=== PATIENT | male | born 1985 ===

== ENCOUNTER 2019-02-26 17:12 | Emergency (ER) | payer SELFPAY ==
[2019-02-26] MEDS ORDERED: NS 0.9% 1000 ML** 1,000 ML IV ONE (17:40)
[2019-02-26 18:00] LABS: ABS Eosinophils 0.1 10^3/ul (0-0.6); ABS Lymphocytes 2.4 10^3/ul (1.0-4.8); ABS Monocytes 0.8 10^3/ul (0-0.8); ABS Neutrophils 6.9 10^3/ul (1.5-7.7); Eosinophil % 1.1 %; Hematocrit 42 % (42-52); Hemoglobin 14.4 g/dL (14.0-18.0); Lymphocyte % 23.3 %; Mean Corpuscular HGB Conc 34 g/dL (31-36); Mean Corpuscular Hemoglobin 30 pg (27-31); Mean Corpuscular Volume 87 fL (80-94); Mean Platelet Volume 8.5 fL (7.4-10.4); Platelet Count 246 10^3/uL (150-450); Red Blood Count 4.81 10^6 /uL (4.18-5.48); Red Cell Distribution Width 14 % (10-15); White Blood Count 10.2 10^3/uL (3.5-10.8)
[2019-02-26] MEDS ORDERED: Ondansetron INJ* 2 MG/ML VIAL IV ONE (18:00)
[2019-02-26] MEDS ORDERED: Pantoprazole IV* 40 MG IV ONE (18:00)
--- NOTE | 2019-02-26 18:03 | ED ---
GI/ HPI - HPI Summary HPI Summary: 33 year old male presents with diffuse abdominal pain today. He admits to nausea vomiting. Denies any diarrhea. Last bowel movement was today. No fevers. He states he's been having tremors. He denies any cough. He admits to headache. No chest pressure or shortness or breath. No urinary symptoms. No one else around him is sick. He's never had this before. No previous abdominal surgeries. Has no medical conditions. denies any other symptoms. has not tried anything for his symptoms. - History of Current Complaint Chief Complaint: EDAbdPain Time Seen by Provider: 02/26/19 17:34 Stated Complaint: ABD PAIN PER PT Pain Intensity: 9 - Allergy/Home Medications Allergies/Adverse Reactions: Allergies Allergy/AdvReac Type Severity Reaction Status Date / Time No Known Allergies Allergy Verified 02/26/19 17:20 PMH/Surg Hx/FS Hx/Imm Hx Endocrine/Hematology History: Denies: Hx Anticoagulant Therapy Respiratory History: Denies: Hx Asthma Infectious Disease History: No Infectious Disease History: Denies: Traveled Outside the [place] in Last 30 Days - Family History Known Family History: Positive: Non-Contributory - Social History Alcohol Use: None Substance Use Type: Reports: None Smoking Status (MU): Never Smoked Tobacco Review of Systems Negative: Fever Negative: Chest Pain Negative: Shortness Of Breath Positive: Abdominal Pain, Vomiting, Nausea. Negative: Diarrhea All Other Systems Reviewed And Are Negative: Yes Physical Exam Triage Information Reviewed: Yes Vital Signs On Initial Exam: Initial Vitals Temp Pulse Resp BP Pulse Ox 98.8 F 71 16 141/90 97 02/26/19 17:13 02/26/19 17:13 02/26/19 17:13 02/26/19 17:13 02/26/19 17:13 Vital Signs Reviewed: Yes Appearance: Positive: Well-Appearing Skin: Positive: Warm, Dry Head/Face: Positive: Normal Head/Face Inspection Eyes: Positive: Normal, EOMI, KEENAN, Conjunctiva Clear ENT: Positive: Pharynx normal Respiratory/Lung Sounds: Positive: Clear to Auscultation, Breath Sounds Present Cardiovascular: Positive: Normal, RRR Abdomen Description: Positive: Soft, Other: - diffuse abd pain Bowel Sounds: Positive: Present Musculoskeletal: Positive: Normal Neurological: Positive: Normal Psychiatric: Positive: Normal Procedures - Sedation Patient Received Moderate/Deep Sedation with Procedure: No Diagnostics - Vital Signs Vital Signs Temp Pulse Resp BP Pulse Ox 02/26/19 17:13 98.8 F 71 16 141/90 97 - Laboratory Lab Results: Lab Results 02/26/19 Range/Units 17:53 WBC 10.2 (3.5-10.8) 10^3/uL RBC 4.81 (4.18-5.48) 10^6 /uL Hgb 14.4 (14.0-18.0) g/dL Hct 42 (42-52) % MCV 87 (80-94) fL MCH 30 (27-31) pg MCHC 34 (31-36) g/dL RDW 14 (10-15) % Plt Count 246 (150-450) 10^3/uL MPV 8.5 (7.4-10.4) fL Neut % (Auto) 67.8 % Lymph % (Auto) 23.3 % Turner % (Auto) 7.4 % Eos % (Auto) 1.1 % Baso % (Auto) 0.4 % Absolute Neuts (auto) 6.9 (1.5-7.7) 10^3/ul Absolute Lymphs (auto) 2.4 (1.0-4.8) 10^3/ul Absolute Monos (auto) 0.8 (0-0.8) 10^3/ul Absolute Eos (auto) 0.1 (0-0.6) 10^3/ul Absolute Basos (auto) 0.0 (0-0.2) 10^3/ul Absolute Nucleated RBC 0.0 10^3/ul Nucleated RBC % 0.0 Result Diagrams: 02/26/19 17:53 02/26/19 17:53 Lab Statement: Any lab studies that have been ordered have been reviewed, and results considered in the medical decision making process. Re-Evaluation - Re-Evaluation First Eval Re-Evaluation Time: 18:50 Change: Improved Comment: feeling better, still diffuse abd pain thats improved. requesting maalox Second Eval Re-Evaluation Time: 19:50 Change: Improved Comment: feeling better after GI cocktail GIGU Course/Dx - Course Course Of Treatment: 33 year old male presents with diffuse abdominal pain today. He admits to nausea vomiting. Denies any diarrhea. Last bowel movement was today. No fevers. He states he's been having tremors. He denies any cough. He admits to headache. No chest pressure or shortness. No urinary symptoms. No one else around him is sick. He's never had this before. No previous abdominal surgeries. Has medical conditions. On exam has mild diffuse abdominal tenderness. wbc normal. CRP is elevated. Gave fluids protonix and Zofran and feeling better. Requesting GI cocktail which gave. - Diagnoses Differential Diagnoses - Male: Gastritis, Gastroenteritis (Bacterial), Gastroenteritis (Viral) Provider Diagnoses: Abdominal pain, Nausea Discharge ED - Sign-Out/Discharge Documenting (check all that apply): Patient Departure - Discharge Plan Condition: Good Disposition: HOME Prescriptions: Ondansetron ODT TAB* [Zofran 4 MG Odt TAB*] 4 mg PO Q6H PRN #12 tab.odt PRN Reason: Nausea Patient Education Materials: Abdominal Pain (ED) Print Language: MICRONESIAN Referrals: [facility] [Outside] Additional Instructions: Can take Zofran every 6 hours as needed for nausea Drink small amounts of fluid as tolerated When able to eat follow BRAT diet: Bananas, rice, applesauce, toast Take ibuprofen or Tylenol for pain as needed every 6 hours Follow up with [facility] within 5 days Return to ED if develop any new or worsening symptoms - Billing Disposition and Condition Condition: GOOD Disposition: Home - Attestation Statements Provider Attestation: I was available for consultation for this patient. I did not evaluate the patient or participate in any medical decision making or disposition decisions unless I am specifically named in the chart as having consulted on the patient. If I have consulted on the patient, please see my own ED note on the patient encounter. Ting Chew MD
[2019-02-26 18:17] LABS: Albumin 4.2 g/dL (3.2-5.2); Albumin/Globulin Ratio 1.1 (1-3); BUN/Creatinine Ratio 16.7 (8-20); C Reactive Protein 8.16 mg/L (<8.01); Calcium 9.3 mg/dL (8.6-10.3); EGFR African American 152.1 (>60); EGFR Non-African American 125.7 (>60); Globulin 3.7 g/dL (2-4); Potassium 3.5 mmol/L (3.5-5.0); Total Bilirubin 0.6 mg/dL (0.2-1.0); Total Protein 7.9 g/dL (6.4-8.9)
[2019-02-26] MEDS ORDERED: Lidocaine 2% VISCOUS* 15 ML UDC PO ONE (18:50)
[2019-02-26] MEDS ORDERED: Al Hydrox/Mg Hydrox/Simet LIQ* 30 ML UDC PO ONE (18:50)
[2019-02-26 19:01] LABS: Urine Appearance Clear; Urine Bilirubin Negative (Negative); Urine Blood Negative (Negative); Urine Color Straw; Urine Glucose Negative (Negative); Urine Ketones Negative (Negative); Urine Nitrite Negative (Negative); Urine Protein Negative (Negative); Urine Specific Gravity 1.009 (1.010-1.030); Urine Urobilinogen Negative (Negative)
[2019-02-26 19:39] LABS: Influenza A Molecular NEGATIVE (Negative); Influenza B Molecular NEGATIVE (Negative)
[2019-02-26 19:45] VITALS: BP 128/68
[2019-02-26] MEDS ORDERED: O ndansetron ODT 4MG 5TAB PRPK 4 MG PAK PO ONE (19:51)
== END 2019-02-26 20:09 | disposition home or self-care (01) ==
LOC: ED 17:12
DX: R10.84 Generalized abdominal pain (principal); R11.2 Nausea with vomiting, unspecified; R25.1 Tremor, unspecified; R51 Headache
CPT/HCPCS: 36415; 80053; 81003; 83690; 83735; 85025; 86140; 96361; 96374; 96375; 99283; A9270-GY; J2405